=== PATIENT | male | born 1995 | race African-American/Black ===

== ENCOUNTER 2018-02-09 07:58 | Emergency (ER) | payer OTHER ==
[2018-02-09] MEDS: NS 1,000 ML IV (08:42)
[2018-02-09 08:54] LABS: BASO % 0.3 % (0.0-1.0); EOS % 0.3 % (0.0-3.0); HEMATOCRIT 46.5 % (42.0-52.0); HEMOGLOBIN 15.1 g/dl (13.5-17.5); IMMATURE GRANULOCYTE % 0.3 % (0-3.0); LYMPH # 1.6 10^3/uL (1.5-6.5); LYMPH % 17.5 % (24.0-44.0); MEAN CORPUSCULAR HEMOGLOBIN 28.8 pg (27.0-33.0); MEAN CORPUSCULAR HGB CONC 32.5 g/dl (32.0-36.5); MEAN CORPUSCULAR VOLUME 88.6 fl (80.0-96.0); MONO # 0.5 10^3/uL (0.0-0.8); MONO % 5.2 % (0.0-5.0); NEUTROPHILS # 6.9 10^3/uL (1.8-7.7); NEUTROPHILS % 76.4 % (36.0-66.0); PLATELET COUNT, AUTOMATED 369 10^3/uL (150-450); RED BLOOD COUNT 5.25 10^6/uL (4.30-6.10); RED CELL DISTRIBUTION WIDTH 12.5 % (11.5-14.5)
[2018-02-09 09:12] LABS: D-DIMER QUANT < 270.0 ng/ml (<500)
[2018-02-09 09:13] LABS: ANION GAP 10 MEQ/L (8-16); BLOOD UREA NITROGEN 13 MG/DL (7-18); CALCIUM LEVEL 8.8 MG/DL (8.5-10.1); CARBON DIOXIDE LEVEL 23 MEQ/L (21-32); CHLORIDE LEVEL 109 MEQ/L (98-107); GLOMERULAR FILTRATION RATE > 60.0 (>60); GLUCOSE, FASTING 105 MG/DL (70-100); POTASSIUM SERUM 3.7 MEQ/L (3.5-5.1); SODIUM LEVEL 142 MEQ/L (136-145)
== END 2018-02-09 10:08 | disposition home or self-care (01) ==
LOC: M ED 07:58
DX: R55 Syncope and collapse (principal)
CPT/HCPCS: 71046

== ENCOUNTER 2018-02-24 06:53 | Emergency (ER) | payer OTHER ==
[2018-02-24 08:41] LABS: CPK CREATINE PHOSPHOKINASE 189 U/L (39-308); TROPONIN I < 0.02 NG/ML (< 0.10)
[2018-02-24] MEDS ORDERED: ISOVUE-370 76% 100ML VIAL (Q9967) As Ordered (08:41)
[2018-02-24 08:55] LABS: ERYTHROCYTE SEDIMENTATION RATE 2 mm/hr (0-15)
== END 2018-02-24 09:30 | disposition home or self-care (01) ==
LOC: M ED 06:53
DX: R07.1 Chest pain on breathing (principal); R06.02 Shortness of breath
CPT/HCPCS: Q9967